=== PATIENT | female | born 1980 | race Caucasian/White ===

== ENCOUNTER → 2025-02-05 14:52 | Outpatient (CLI) | payer MEDICARE, MEDICAID, SELFPAY | PROVIDERS: Family Provider Nurse Practitioner; PCP Nurse Practitioner; Visit Provider Physician Assistant Medical | DX: R30.0 Dysuria (principal) | CPT/HCPCS: 87798; 87801 ==

== ENCOUNTER 2025-05-08 23:25 | Emergency (ER) | payer MEDICARE, OTHER, SELFPAY ==
[2025-05-09] VITALS (7 sets, daily range): BP systolic 123–137; BP diastolic 65–88; PULSE 84–94; RESP 13–20; TEMP 36.6–36.7; O2SAT 94–97; BMI 28.3
--- NOTE | 2025-05-09 01:55 | ED.EXTPRO ---
HPI - Extremity Problem General Chief complaint: Extremity Problem,Nontraumatic Stated complaint: R Thing Pain/Tender Time Seen by Provider: 05/09/25 01:49 Source: patient Mode of arrival: Ambulatory History of Present Illness HPI Narrative: 45-year-old female, transgender transition on testosterone injections per clinic records last month, history of reported thrombocytopenia followed by [facility] hematology/oncology having recently completed 6 weeks tapering steroid course done one-week ago, no bone marrow biopsy but possible future bone marrow biopsy if thrombocytopenia persists or is recurrent, has nontraumatic right anterolateral thigh pain without fevers or chills or redness or swelling. No posterior leg pain. No distal calf pain. No history of blood clot problems. Related Data Home Medications ?Medication ?Instructions ?Recorded ?Confirmed [testosterone] EXT QDAY ##0 01/21/16 04/18/25 albuterol sulfate 90 mcg/actuation 2 puff inhalation Q6H PRN 02/05/25 04/18/25 aerosol inhaler artificial tears(hypromellose) 0.3 EYE-BOTH 02/05/25 04/18/25 % eye gel estradiol 0.01% (0.1 mg/gram) vaginal 02/05/25 04/18/25 vaginal cream finasteride 1 mg tablet 1 mg PO DAILY 02/05/25 04/18/25 ibuprofen 600 mg tablet 600 mg PO PRN long covid, pain, 02/05/25 04/18/25 inflammaion labetalol 100 mg tablet 100 mg PO BID 02/05/25 04/18/25 lamotrigine 25 mg tablet 75 mg PO DAILY mood stability 02/05/25 04/18/25 lorazepam 1 mg tablet (Ativan) 1 mg PO BID 02/05/25 04/18/25 testosterone cypionate 200 mg/mL 90 mg IM Q4W 02/05/25 04/18/25 intramuscular oil Previous Rx's ?Medication ?Instructions ?Recorded ibuprofen 800 mg tablet 800 mg PO BID #60 tabs 09/27/16 Allergies Allergy/AdvReac Type Severity Reaction Status Date / Time latex (LATEX) Allergy Intermediate rash Unverified 05/09/25 00:00 Patient History Surgical History (Updated 09/27/17 @ 06:04 by Conversion Provider) History of total mastectomy Family History (Updated 07/14/16 @ 00:00 by Conversion Provider) Father Essential hypertension Mother Essential hypertension Depression Social History Smoking Status: Never smoker Smoking Status: Never smoker Exam Narrative Exam Narrative: GENERAL: Well-developed patient, in mild distress. HEAD: Atraumatic. Normocephalic. EYES: Pupils equal round and reactive. Extraocular motions intact. No scleral icterus. No injection or drainage. ENT: Nose without bleeding, purulent drainage. Throat without erythema, tonsillar hypertrophy or exudate. Airway patent. 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 NECK: Trachea midline. Non tender CARDIOVASCULAR: Regular rate and rhythm without murmurs, gallops, or rubs. RESPIRATORY: Clear to auscultation. Breath sounds equal bilaterally. No wheezes, rales, or rhonchi. GASTROINTESTINAL: Abdomen soft, non-tender, nondistended. EXTREMITIES: No tenderness or redness or swelling to right anterior/lateral thigh area of discomfort. No lower leg swelling obvious. No redness or skin changes or warmth. BACK: Nontender without deformity or crepitance. No flank tenderness. NEURO: AOx3. Motor functions grossly nonfocal. SKIN: No rash or erythema of visible areas Initial Vital Signs Initial Vital Signs: Vital Signs Temperature 97.8 F 05/09/25 00:00 Pulse Rate 89 05/09/25 00:00 Respiratory Rate 16 05/09/25 00:00 Blood Pressure 137/88 05/09/25 00:00 Pulse Oximetry 97 05/09/25 00:00 Oxygen Delivery Method Room Air 05/09/25 00:00 Course Orders Ordered: ED Orders 05/09/25 03:36 CBC Auto Diff [Complete Blood Count AUTO DIFF] Stat CMP [Comprehensive Metabolic Panel] Stat D Dimer Stat Prothrombin Time INR Stat 05/09/25 04:40 Platelet Count Stat 05/09/25 05:21 periph venous low extrem rt Stat Discontinued Medications Hydrocodone Bitart/Acetaminophen (Hydrocodone/Acet 5/325 Prepack) 1 bottle MISC DIRECTED ONE Stop: 05/09/25 06:29 Last Admin: 05/09/25 06:38 Dose: 1 bottle Hydromorphone HCl (Hydromorphone Hcl 0.5 Mg/0.5 Ml Syringe) 0.5 mg IV NOW ONE Stop: 05/09/25 05:27 Last Admin: 05/09/25 05:50 Dose: 0.5 mg Sodium Chloride (Normal Saline 0.9%) 1,000 mls @ 1,000 mls/hr IV BOLUS ONE Stop: 05/09/25 05:41 Last Infusion: 05/09/25 06:33 Dose: Infused Vital Signs Vital signs: Vital Signs - 8 hr 05/09/25 00:00 05/09/25 03:15 05/09/25 04:01 Temperature 97.8 F 98.1 F Pulse Rate 89 84 85 Respiratory Rate 16 16 17 Blood Pressure 137/88 129/82 Pulse Oximetry 97 94 95 Oxygen Delivery Method Room Air Room Air Room Air 05/09/25 04:30 05/09/25 04:30 05/09/25 05:00 Temperature Pulse Rate 91 H Respiratory Rate 20 Blood Pressure 123/65 134/68 Pulse Oximetry 94 Oxygen Delivery Method Room Air 05/09/25 05:00 05/09/25 05:30 05/09/25 05:30 Temperature Pulse Rate 94 H 93 H Respiratory Rate 13 17 Blood Pressure 127/82 Pulse Oximetry 97 97 Oxygen Delivery Method Room Air Room Air 05/09/25 06:00 05/09/25 06:00 Temperature Pulse Rate 86 Respiratory Rate 16 Blood Pressure 132/77 Pulse Oximetry 95 Oxygen Delivery Method Room Air MDM - Extremity (Nontraumatic) Lab Data 05/09/25 04:40 05/09/25 03:36 Labs: Lab Results 05/09/25 05/09/25 Range/Units 03:36 04:40 WBC 10.3 (4.5-11.0) X10^3/uL RBC 4.76 (4.0-5.2) X10^6/uL Hgb 14.3 (12.0-16.0) g/dL Hct 40.9 (36-46) % MCV 85.8 (80-100) fL MCH 30.1 (26-34) PG MCHC 35.1 (30-36) % RDW 12.5 (11.6-14.8) % Plt Count 263 (150-400) X10^3/uL Neut % (Auto) Not Reportable Lymph % (Auto) Not Reportable [place] % (Auto) Not Reportable Eos % (Auto) Not Reportable Baso % (Auto) Not Reportable Lymph # (Auto) Not Reportable [place] # (Auto) Not Reportable Baso # (Auto) Not Reportable Total Counted 100 Seg Neutrophils % 44.0 (38-70) % Lymphocytes % (Manual) 45.0 (25-45) % Monocytes % (Manual) 9.0 (2-11) % Eosinophils % (Manual) 2.0 (2-4) % Neutrophils # (Manual) 4532 (9068-9071) /uL Platelet Estimate Adequate on smear RBC Morphology Normal morphology PT 10.8 (9.4-12.5) SECONDS INR 1.0 (0.9-1.3) D-Dimer < 215 (<500) ng/ml Sodium 138 (137-145) mmol/L Potassium 3.8 (3.4-5.1) mmol/L Chloride 103 (98-107) mmol/L Carbon Dioxide 26 (22-32) mmol/L BUN 8 (7-17) mg/dL Creatinine 0.93 (0.52-1.04) mg/dL Estimated GFR > 60 (>60) mL/min BUN/Creatinine Ratio 8.6 (6-22) Glucose 107 H (70-99) mg/dL Calcium 9.5 (8.4-10.2) mg/dL Total Bilirubin 0.3 (0.2-1.3) mg/dL AST 27 (14-36) IU/L ALT 31 (<35) IU/L Alkaline Phosphatase 42 (38-126) U/L Total Protein 7.7 (6.3-8.2) g/dL Albumin 4.5 (3.5-5.0) g/dL Globulin 3.2 (1.7-4.1) g/dL Albumin/Globulin Ratio 1.4 (1.0-2.8) MDM Narrative Medical decision making narrative: 45-year-old female transgender transitioning to male on testosterone injections, has 2 days duration nontraumatic right anterior lateral thigh pain, history of thrombocytopenia followed by [facility] hematology unclear diagnosis, no injury or trauma, afebrile, no significant swelling, seems anterolateral not posterior, seems clinically less likely to be position of DVT, no obvious swelling or hematoma or cellulitis changes. Could be compression of lateral femoral cutaneous nerve. Labs pending. Lab data: White blood cell count 91937, hemoglobin 14.3, platelets 263,000 (not decreased, history of thrombocytopenia noted). Electrolytes, renal function, glucose, liver functions normal. D-dimer negative. Patient states feels dehydrated, requesting IV fluids, 1 L saline IV bolus ordered. D-dimer negative, patient persisting in request for ultrasound images, seems unlikely for DVT. Order placed. IV Dilaudid for pain control. Right lower extremity venous Doppler, negative for DVT. Home pack hydrocodone/acetaminophen for pain control to use if needed. Consider compression of lateral femoral cutaneous nerve if cause of symptoms, could encourage looser fitting clothing, avoiding tight belt closure, etc. Platelet count [id number] normal range noted, patient made aware. Discharge Plan Departure Patient Disposition: Home Clinical Impression: Acute pain of right lower extremity Activity Restrictions/Additional Instructions: Right anterior/lateral thigh pain without known trauma. Of low platelets of unclear cause. However your lab measured platelet count was normal today (platelets 263,000). No fever on triage. D-dimer negative. Exam and symptoms not consistent with deep vein thrombosis. Request for DVT imaging. Right lower extremity venous Doppler study was ordered, negative for DVT (deep vein thrombosis) at this time. No incidental mentioned of any deep space fluid collection or abscess on ultrasound. Location of your discomfort could be from local compression of the lateral cutaneous femoral nerve, versus some other process. No obvious fever, no redness or obvious cellulitis/infection like changes at this time. Trial of analgesics in close follow up. You could try wearing some looser fitting clothing, and not use of any tight waist belts for example, if there is any component of compression of the lateral femoral cutaneous nerve that is bothering your anterolateral right thigh at this time. Consider [id number] ibuprofen/Motrin for pain control. Home pack of hydrocodone/acetaminophen given to use for additional pain control, if needed. Prescriptions: No Action [testosterone] EXT QDAY Qty: 0 ibuprofen 800 MG tablet 800 mg PO BID Qty: 60 3RF lamotrigine 25 mg tablet 75 mg PO DAILY lorazepam [Ativan] 1 mg tablet 1 mg PO BID testosterone cypionate 200 mg/mL oil 90 mg IM Q4W ibuprofen 600 mg tablet 600 mg PO PRN (Reason: long covid, pain, inflammaion) Patient Comments: as needed estradiol 0.01 % (0.1 mg/gram) cream vaginal labetalol 100 mg tablet 100 mg PO BID albuterol sulfate 90 mcg/actuation HFA aerosol inhaler 2 puff inhalation Q6H PRN finasteride 1 mg tablet 1 mg PO DAILY artificial tears(hypromellose) 0.3 % gel EYE-BOTH Referrals: Kenzie Alarcon MD [Primary Care Provider, Family Practice] Stand Alone Forms: Patient Portal/API
[2025-05-09 04:00] LABS: Hematocrit 40.9 % (36-46); Hemoglobin 14.3 g/dL (12.0-16.0); Mean Corpuscular HGB Conc 35.1 % (30-36); Mean Corpuscular Hemoglobin 30.1 PG (26-34); Mean Corpuscular Volume 85.8 fL (80-100)
[2025-05-09 04:02] LABS: INR 1.0 (0.9-1.3); Prothrombin Time 10.8 SECONDS (9.4-12.5)
[2025-05-09 04:06] LABS: Alanine Aminotransferase 31 IU/L (<35); Albumin 4.5 g/dL (3.5-5.0); Albumin Globulin Ratio 1.4 (1.0-2.8); Alkaline Phosphatase 42 U/L (38-126); Blood Urea Nitrogen 8 mg/dL (7-17); Calcium 9.5 mg/dL (8.4-10.2); Carbon Dioxide 26 mmol/L (22-32); Chloride 103 mmol/L (98-107); Estimated Glomerular Filt Rate > 60 mL/min (>60); Globulin 3.2 g/dL (1.7-4.1); Glucose 107 mg/dL (70-99); HEMOLYSIS 22 (0-50); Potassium 3.8 mmol/L (3.4-5.1); Sodium 138 mmol/L (137-145); Total Protein 7.7 g/dL (6.3-8.2)
[2025-05-09 04:39] LABS: Add Manual Diff / Slide Review YES
[2025-05-09 04:40] LABS: Eosinophils Percent Manual 2.0 % (2-4); Lymphocytes Percent Manual 45.0 % (25-45); Monocytes Percent Manual 9.0 % (2-11); Neutrophils Absolute Manual 4532 /uL (3000-5900); RBC Morphology Normal Morphology; Segmented Neutrophils Percent 44.0 % (38-70); Total Cells Counted 100
[2025-05-09 05:02] LABS: Platelet Count 263 X10^3/uL (150-400)
[2025-05-09] MEDS: SODIUM CHLORIDE 0.9% 1,000 ML 1000 ML IV (05:16)
--- NOTE | 2025-05-09 05:21 | DI.US.S_ITS ---
PROCEDURE: US PERIPH VENOUS LOW EXTREM RT INDICATIONS: right leg pain, pt concern for DVT TECHNIQUE: Real-time imaging, as well as color and pulse Doppler interrogation, were performed of the lower extremity deep veins from the inguinal ligament to the popliteal fossa, with documentation of the visualized calf veins. COMPARISON: None. FINDINGS: The common femoral, femoral, popliteal, and the visualized calf veins are normally compressible, and free of intraluminal thrombus. Color and pulse Doppler demonstrate normal phasic intraluminal flow. There is normal augmentation response to distal compression maneuver. IMPRESSION: No findings of lower extremity deep venous thrombosis. Dictated by: Conrado Dozier M.D. on 05/09/2025 at 7:34 Approved by: Conrado Dozier M.D. on 05/09/2025 at 7:35
== END 2025-05-09 06:57 | disposition home or self-care (01) ==
PROVIDERS: Emergency Provider Emergency Medicine; PCP Family Medicine
DX: M79.651 Pain in right thigh (principal); Z86.2 Personal history of diseases of the blood and blood-forming organs and certain disorders involving the immune mechanism
CPT/HCPCS: 36415; 80053; 85007; 85025; 85049; 85379; 85610; 93971; 96361; 96374; 99284; J1171; J7030